=== PATIENT | male | born 1965 | race Caucasian/White ===

== ENCOUNTER 2021-02-16 19:11 | Emergency (ER) | payer MEDICAID ==
[~2021-02-16] VITALS: Ht 182.9 cm; Wt 98.0 kg
[2021-02-16 20:30] VITALS: BP 126/80
[2021-02-16] MEDS ORDERED: BACITRACIN ZINC OINT UDPKT TOP ONE (21:15)
[2021-02-16] MEDS ORDERED: CEPH500C2 MT (22:20)
[2021-02-16] MEDS ORDERED: SULF1TAB48 MT (22:20)
[2021-02-16] MEDS ORDERED: IBUP-2028 MT (22:20)
== END 2021-02-16 22:53 | disposition home or self-care (01) ==
LOC: ER 19:11
DX: L02.413 Cutaneous abscess of right upper limb (principal)
CPT/HCPCS: 10060; 99283

== ENCOUNTER 2021-02-19 11:16 | Emergency (ER) | payer MEDICAID ==
[~2021-02-19] VITALS: Ht 172.7 cm; Wt 89.0 kg
[~2021-02-19 11:16] MED LIST: CEPH500C2 MT; IBUP-2028 MT; SULF1TAB48 MT
[2021-02-19 12:10] VITALS: BP 113/72
== END 2021-02-19 12:44 | disposition home or self-care (01) ==
LOC: ER 11:16
DX: Z48.00 Encounter for change or removal of nonsurgical wound dressing (principal); Z85.841 Personal history of malignant neoplasm of brain; Z95.1 Presence of aortocoronary bypass graft
CPT/HCPCS: 99282